=== PATIENT | male | born 1975 | race Caucasian/White ===

== ENCOUNTER 2018-07-13 15:27 | Outpatient (CLI) | payer OTHER, SELFPAY ==
[2018-07-13 17:36] LABS: ALT 46 U/L (12-78); AST 27 U/L (15-37); Albumin 3.9 g/dL (3.4-5.0); Alkaline Phosphatase 85 U/L (46-116); Anion Gap 12.1 mmol/L (3-11); BUN 17 mg/dL (7-18); Bilirubin, Total 0.7 mg/dL (0.2-1.0); CO2 24.9 mmol/L (21.0-32.0); CREATININE 1.03 mg/dL (0.70-1.30); Calcium 8.8 mg/dL (8.5-10.1); Chloride 103 mmol/L (98-107); Cholesterol 257 mg/dL (50-200); Glucose 104 mg/dL (70-100); HDL Cholesterol 62 mg/dL (40-60); LDL CHOLESTEROL 169 mg/dL (<100); Potassium 4.5 mmol/L (3.5-5.1); Sodium 140 mmol/L (136-145); Total Protein 7.8 g/dL (6.4-8.2); Triglyceride 182 mg/dL (30-150)
== END 2018-07-13 15:47 ==
PROVIDERS: PCP Physician Assistant Medical; Visit Provider Physician Assistant Medical
DX: Z00.00 Encounter for general adult medical examination without abnormal findings (principal); Z13.228 Encounter for screening for other metabolic disorders; Z13.220 Encounter for screening for lipoid disorders
CPT/HCPCS: 36415; 80053; 80061; 83721

== ENCOUNTER 2020-07-27 14:16 | Outpatient (REF) | payer OTHER, SELFPAY ==
[2020-07-30 10:59] LABS: Patient Race White; SARS-CoV-2 RNA Undetected (Undetected); SARS-CoV-2 Specimen Source Nasal
== END 2020-07-27 14:36 ==
LOC: LBO 14:16
PROVIDERS: PCP Physician Assistant Medical; Visit Provider Nurse Practitioner Family
DX: Z11.59 Encounter for screening for other viral diseases (principal)
CPT/HCPCS: U0003

== ENCOUNTER 2021-07-17 01:48 | Outpatient (CLI) | payer OTHER, SELFPAY ==
--- NOTE | 2021-07-17 | DI.RAD_ITS ---
Exam(s) XR LUMBAR SPINE COMPLETE EXAM: XR LUMBAR SPINE COMPLETE CLINICAL HISTORY: LOW BACK PAIN, M54.5. TECHNIQUE: 2D digital imaging was performed. COMPARISON: No exams were available for comparison FINDINGS: Five views reveal no evidence of fracture or listhesis nor pars interarticularis defects. There is m ild disc space narrowing at L3-4 level and anterior osseous lipping at this level. Facet joints appe ar unremarkable. Sacroiliac joints appear unremarkable. No scoliosis. No ominous osseous lesions. IMPRESSION: Mild disc space narrowing at L3-4 level. DATA REPOSITORY: RADIATION DOSE DELIVERED:
--- NOTE | 2021-07-17 | DI.RAD_ITS ---
Exam(s) XR FOOT LT COMPLETE EXAM: XR FOOT LT COMPLETE CLINICAL HISTORY: LT FOOT PAIN, M79.672. TECHNIQUE: 2D digital imaging was performed. COMPARISON: No exams were available for comparison FINDINGS: There is hardware in the ankle comprised of lateral fixation plate in the fibula and the syndesmotic screw. Bones of the foot are osteopenia. Exaggerated plantar arch. There are advanced degenerative midfoot changes. There is fusion across the calcaneocuboid joint. Mild degenerative changes in the talonav icular joint calcification in the plantar fascia is noted. IMPRESSION: DATA REPOSITORY: RADIATION DOSE DELIVERED:
== END 2021-07-17 02:08 ==
PROVIDERS: PCP Physician Assistant Medical; Visit Provider Physician Assistant Medical
DX: M79.672 Pain in left foot (principal); M54.5 Low back pain; M19.072 Primary osteoarthritis, left ankle and foot; M85.872 Other specified disorders of bone density and structure, left ankle and foot; M48.061 Spinal stenosis, lumbar region without neurogenic claudication
CPT/HCPCS: 72110; 73630

== ENCOUNTER 2021-07-17 03:45 | Outpatient (CLI) | payer OTHER, SELFPAY ==
[2021-07-17 14:27] LABS: ALT 197 U/L (16-63); AST 138 U/L (15-37); Alkaline Phosphatase 81 U/L (46-116); Anion Gap 9.5 mmol/L (3-11); BUN 10 mg/dL (7-18); Bilirubin, Total 1.6 mg/dL (0.2-1.0); CO2 27.5 mmol/L (21.0-32.0); Calcium 9.1 mg/dL (8.5-10.1); Calculated LDL 163 mg/dL (<100); Chloride 102 mmol/L (98-107); Cholesterol 276 mg/dL (<200); Glucose 107 mg/dL (74-106); HDL Cholesterol 96 mg/dL (40-60); Potassium 4.3 mmol/L (3.5-5.1); Sodium 139 mmol/L (136-145); Total Protein 7.7 g/dL (6.4-8.2); Triglyceride 86 mg/dL (<150)
[2021-07-19 10:49] LABS: Hepatitis A Antibody IgM Negative (Negative); Hepatitis B Core Antibody Negative (Negative); Hepatitis B surface Ag Negative (Negative); Hepatitis C Ab w Rflx HCV PCR Negative (Negative)
== END 2021-07-17 03:46 | disposition home or self-care (01) ==
LOC: LBO 03:47
PROVIDERS: PCP Physician Assistant Medical; Visit Provider Physician Assistant Medical
DX: R79.89 Other specified abnormal findings of blood chemistry (principal); Z00.00 Encounter for general adult medical examination without abnormal findings; Z13.220 Encounter for screening for lipoid disorders
CPT/HCPCS: 36415; 80053; 80061; 86704; 86709; 86803; 87340

== ENCOUNTER 2021-09-25 13:17 | Emergency (ER) | payer OTHER, SELFPAY ==
[2021-09-25] VITALS (21 sets, daily range): BP systolic 114–133; BP diastolic 80–108; PULSE 91–98; RESP 14–17; TEMP 36.4–36.7; O2SAT 92–97
--- OUTSIDE RECORDS SUMMARY | 2021-09-25 13:22 | XMS_ITS ---
:1975 Author Care Team Providers Name Role Phone MANDI VERA Primary Care Provider [phone] Allergies Code Code System Name Reaction Severity Status Onset 711072 RxNorm House Dust ? ? Active ? 141126 RxNorm Mold ? ? Active ? Medications Name Status Start Date Stop Date ? ? albuterol sulfate HFA 90 mcg/actuation Active ? Not available aerosol inhaler eszopiclone 3 mg tablet Active ? Not avai lable flurazepam 30 mg capsule Active ? Not yamila ilable temazepam 15 mg capsule Completed ? 10/17/20 20 zolpidem ER 12.5 mg tablet,extended Completed ? 10/17/2020 release,multiphase Problems Name Status Onset Date Source ? Hyperlipidemia Active 08/14/2020 ? Anxiety Active 08/14/2020 ? Tobacco User Active 08/14/2020 ? Insomnia Active 08/14/2020 ? Asthma Active 08/14/2020 ? Polyp Active 08/14/2020 ? Allergy to Food Active 08/14/2020 ? Snoring Active 10/15/2020 ? Procedures Date Name Performed by ? 10/17/2020 Polysomnogram Information not avai lable Results Lab Results None recorded. Past Encounters 10/17/2020 Snoring; Insomnia Shi Patel [employer] AIDE: [address] [place] [phone], Ph. Social History Tobacco Smoking Status Never Smoker Vaccine List None recorded. Plan of Care Reminders Provider Appointments None ? ? recorded. Lab None ? ? recorded. Referral None ? ? recorded. Procedures None ? ? recorded. Surgeries None ? ? recorded. Imaging None ? ? recorded. Vitals Height Weight BMI Blood Pressure 170.18 cm 108.86 kg 37.6 kg/m2 120/80 mm[Hg]
--- NOTE | 2021-09-25 13:45 | RT.EKG_ITS ---
APPROVED REPORT Exam: Resting ECG Reason for Exam: paresthesias Patient Location: E HR:90 bpm ECG Measurements Heart Rate 90 AXIS MN 182 P 45 QRSd 82 QRS 5 QT 373 T 39 QTc 456 Conclusion Sinus rhythm...normal P axis, V-rate 60- 99
--- NOTE | 2021-09-25 14:38 | ED.GENADUL_ITS ---
Discharge Plan Disposition Patient Disposition: HOME Condition: Stable Discharge Details Clinical Impression: Paresthesia Primary Care Provider: Marino Welch ED Provider: Autumn Montano Home Meds and New Rx's Prescriptions: Continued albuterol sulfate [ProAir HFA] 200 PUFF HFA aerosol inhaler 2 puff Inhalation PRN PRNRF: 0 eszopiclone [Lunesta] 3 MG tablet 3 mg PO PRN PRNRF: 0 Discharge Instructions Additional Instructions: Decrease your alcohol consumption by 1 drink daily, do not stop drinking alcohol abruptly as this can make you very ill Start taking a daily multivitamin Follow-up with your primary care physician in 2 to 3 days for reassessment You may need outpatient EMG studies, this checks nerve conduction to see why you are having your symptoms if you are not having symptomatic improvement You still have some tests are pending, we will call you with the tests are abnormal, they likely will not return for several days Should you have new or worsening complaints including headache, chest pain, shortness of breath, I recommend reassessment in the emergency room Referrals: Marino Welch PA [Primary Care Provider] - Discharge Data Discharge Date/Time-TO BE ENTERED AT DEPARTURE: 09/25/21 15:52 Medical Decision Making Patient appears well, he is ambulatory steady gait with essentially nonfocal neurological exam, diagnostic labs aside from elevated LFTs not show acute abnormality, suspect his symptoms are related to alcohol consumption, will tend to B12 will take multivitamin We'll decrease his alcohol consumption by 1 drink a day and Tylenol he is able to discontinue We'll follow up closely with his primary care physician, 1 to 2 days reflux recommended We talked about Neurontin patient the risk outweighs the benefit associated with this medication Outpatient EMG testing should he have persistent symptoms Lyme titer pending as well Will need LFTs recheck by primary care physician, discussed with return precautions discussed, discharged home in stable condition with stable Medical Records Medical records reviewed: Yes I reviewed the patient's medical records. Lab Data Lab results reviewed: Yes I reviewed the patient's lab results. HPI General Mode of arrival: ambulatory . Date/Time Provider Initiated Documentation: 09/25/21 13:20 . Limitations to Documentation: no limitations . Information obtained by: patient . HPI Narrative: This 46-year-old male presents with report of paresthesias to bilateral upper and lower extremities. States has had symptoms for approximately 6 weeks. He has not been evaluated by his PCP for these findings. He denies any chest pain or shortness of breath. He denies any dizziness or Related Data Home Medications Medication Instructions Recorded Confirmed albuterol sulfate [ProAir HFA] 2 puff INHALATION PRN PRN 06/13/13 09/25/21 eszopiclone [Lunesta] 3 mg PO PRN PRN 06/13/13 09/25/21 Allergies Allergy/AdvReac Type Severity Reaction Status Date / Time DUST AND MOLD Allergy WHEEZY Uncoded 09/25/21 13:27 General Stated Complaint: GenMedical WOOD: 3 Review of Systems All systems reviewed & are unremarkable except as noted in HPI and below PFSH Social History Smoking/Tobacco Use Status: Never Smoking risk assessment performed?: Yes Alcohol Intake: current Alcohol Intake frequency: 3 or more drinks per day Alcohol type: beer, wine and hard liquor Drug use: Never Substance use type: does not use Do you feel safe at home: Yes Do you feel safe in your relationship?: Yes Exam Const General: cooperative and no acute distress Eyes Sclera: sclerae normal Neck Other: No midline tenderness Resp Effort & Inspection: normal respiratory effort Auscultation: clear to auscultation bilaterally Cardio Rate: regular rate Rhythm: regular rhythm Other: distal pulses intact GI Other: no abdominal bruit or pulsatile mass Back/Spine/Pelvis Other: no midline tenderness Skin General skin exam: no rashes or lesions noted Neuro General: patient alert and patient oriented x3 Cranial Nerves: CN's II-XI intact bilaterally Cognition: normal cognition Speech: speech normal Gait: normal gait Extrem Other: Distal pulses intact, sensation intact distally patient Course Vital Signs Vital signs: Vital Signs Temperature 36.7 C 09/25/21 13:24 Pulse 92 H 09/25/21 13:24 Respiratory Rate 14 09/25/21 13:24 Pulse Oximetry 97 09/25/21 13:24 Temperature 36.7 C 09/25/21 13:24 Temperature Source Skin 09/25/21 13:24 Pulse 92 H 09/25/21 13:24 Respiratory Rate 14 09/25/21 13:24 Respiratory Effort Non-Labored 09/25/21 13:29 Respiratory Depth Normal 09/25/21 13:29 Respiratory Pattern Normal 09/25/21 13:29 Blood Pressure Position Supine 09/25/21 13:24 Pulse Oximetry 97 09/25/21 13:24 Oxygen Delivery Method Room Air 09/25/21 13:24 Oxygen Flow Rate 0 09/25/21 13:24 Pain Level 5 09/25/21 13:24 PAWSS Have you Been Recently Intoxicated or Drunk Within the Last 30 days?: No Have you Ever Experienced Previous Episodes of Alcohol Withdrawal?: No Have you ever Experienced Withdrawal Seizures?: No Have you ever Experienced Delirium Tremens(DT)s?: No Have you ever undergone Alcohol Rehabilitation Treatment (i.e, inpt ot outpatient treatment programs)?: No Have you ever Experienced Blackouts?: No Have you ever Combined Alcohol with other Downers within the last 90 days?: No Have you ever Combined Alcohol with any other Substance of Abuse during the last 90 days?: No Positive Blood Alcohol level on Presentation? [PCS.BAL]: No Evidence of Increased Autonomic Activity (i.e. HR>120, tremor, sweating, agitation, nausea)?: No Result: 0
[2021-09-25 14:41] LABS: Abs Immature Grans 0.01 10^3/uL (0.0-0.06); Absolute Basophil Count 0.04 10^3/uL (0.0-0.2); Absolute Eosinophil Count 0.03 10^3/uL (0.0-0.7); Absolute Lymphocyte Count 1.48 10^3/uL (1.2-3.4); Absolute Monocyte Count 0.55 10^3/uL (0.1-0.8); Absolute Neutrophil Count 2.37 10^3/uL (1.2-6.7); Basophils % 0.9; Eosinophils % 0.7; HCT 47.1 % (40.0-50.0); HGB 16.3 g/dL (13.5-17.5); Immature Grans % 0.2; MCH 32.5 pg (27.0-33.0); MCHC 34.6 % (32.0-36.0); MCV 93.8 fL (80-95); MPV 9.1 fL (8.0-11.0); Monocytes % 12.3; Neutrophils % 52.9; Nucleated RBC 0 %; Platelet Count 209 10^3/uL (130-400); RBC 5.02 10^6/uL (4.36-5.78); RDW 12.8 % (11.8-14.1); WBC 4.48 10^3/uL (4.4-10.8)
[2021-09-25 15:15] LABS: ALT 182 U/L (16-63); AST 228 U/L (15-37); Albumin 3.8 g/dL (3.4-5.0); Alkaline Phosphatase 83 U/L (46-116); Anion Gap 10.9 mmol/L (3-11); BUN 6 mg/dL (7-18); Bilirubin, Total 0.7 mg/dL (0.2-1.0); CO2 26.1 mmol/L (21.0-32.0); CREATININE 0.8 mg/dL (0.70-1.30); Calcium 8.6 mg/dL (8.5-10.1); Chloride 102 mmol/L (98-107); Creatine Kinase 111 U/L (39-308); Glucose 115 mg/dL (74-106); Magnesium 2.2 mg/dL (1.8-2.4); Potassium 4.1 mmol/L (3.5-5.1); Sodium 139 mmol/L (136-145); TSH (W/Ref FT4) 1.85 uIU/mL (0.36-3.74); Total Protein 7.9 g/dL (6.4-8.2)
[2021-09-25 16:25] LABS: Vitamin B12 756 pg/mL (193-986)
[2021-09-26 10:48] LABS: Lyme Ab w Rflx to Lyme Confirm Negative (Negative)
[2021-09-27 17:23] LABS: Anaplasma phagocytophilum Negative (Negative); B. miyamotoi PCR Negative (Negative); Babesia divergens/MO-1 Negative (Negative); Babesia duncani Negative (Negative); Babesia microti Negative (Negative); Ehrlichia chaffeensis Negative (Negative); Ehrlichia ewingii/canis Negative (Negative); Ehrlichia muris eauclairensis Negative (Negative)
== END 2021-09-25 15:52 | disposition home or self-care (01) ==
PROVIDERS: Emergency Provider Physician Assistant; PCP Physician Assistant Medical
DX: R20.0 Anesthesia of skin (principal)
CPT/HCPCS: 80053; 82550; 87798; 93005; 99283; 82607; 83735; 84443; 85025; 86618; 93010

== ENCOUNTER 2022-03-28 12:00 | Emergency (ER) | payer OTHER, SELFPAY ==
[2022-03-28 12:23] VITALS: BP 128/75; PULSE 101; RESP 16; TEMP 36.6; O2SAT 98
--- NOTE | 2022-03-28 13:44 | ED.GENADUL_ITS ---
Discharge Plan Disposition Patient Disposition: HOME Condition: Stable Discharge Details Chief Complaint: RespSymp Clinical Impression: Cough Primary Care Provider: Marino Welch ED Provider: Chad Collins Home Meds and New Rx's Prescriptions: No Action albuterol sulfate [ProAir HFA] 200 PUFF HFA aerosol inhaler 2 puff Inhalation PRN PRN Label Comments: a week or so ago eszopiclone [Lunesta] 3 MG tablet 3 mg PO PRN PRN Discharge Instructions Instructions: Acute Cough (ED) Additional Instructions: Please follow-up with your primary care physician. Please return to the emergency part if you have worsening symptoms such as worsening cough fevers chills shortness of breath or other abnormal symptoms. Medical Decision Making 46-year-old male recent COVID-19 presents with persistent nonproductive cough over the past several days, nontoxic well-appearing no respiratory stress lungs clear bilaterally. Consider subsequent pneumonia post viral infection versus less likely persistent viral infection versus residual inflammatory state from viral infection versus unlikely pneumothorax or pleural effusion. Screening x- ray, trial of steroids. Patient will likely be discharged home with home care instructions and return precautions pending x-ray results. 14: 59 patient was comfortably no acute distress x-ray clear. No respiratory distress given home care instructions and return precautions. HPI General Date/Time Provider Initiated Documentation: 03/28/22 13:32 . HPI Narrative: 46-year-old male recent COVID-19 presents with persistent nonproductive cough over the past several days, denies fever chills nausea vomiting or shortness of breath. Related Data Home Medications Medication Instructions Recorded Confirmed albuterol sulfate 90 mcg/actuation 2 puff inhalation PRN PRN 06/13/13 03/28/22 aerosol inhaler (ProAir HFA) eszopiclone 3 mg tablet (Lunesta) 3 mg PO PRN PRN 06/13/13 03/28/22 Allergies Allergy/AdvReac Type Severity Reaction Status Date / Time DUST AND MOLD Allergy WHEEZY Uncoded 09/25/21 13:27 General Stated Complaint: RespSymp WOOD: 3 Review of Systems Narrative: Review of Systems Constitutional: negative Eyes: negative ENT: negative Cardiovascular: negative Respiratory: Cough Gastrointestinal: negative : negative Musculoskeletal: negative Skin: negative Neurologic: negative Psych: negative PFSH All Active Problems (Updated 03/28/22 @ 15:01 by Chad Collins MD) Paresthesia (Acute) Cough (Acute) Encounter for screening for other viral diseases (Acute) Social History Smoking/Tobacco Use Status: Never Smoking risk assessment performed?: Yes Alcohol Intake: current Alcohol Intake frequency: 3 or more drinks per day Alcohol type: beer, wine and hard liquor Drug use: Never Substance use type: does not use Do you feel safe at home: Yes Do you feel safe in your relationship?: Yes Exam Narrative Exam Narrative: Physical Examination General: alert, awake, cooperative, resting comfortably, no acute distress HEENT: normocephalic, atraumatic; PERRL, EOM intact, conjunctiva normal; no nasal discharge; moist mucous membranes, oral and pharyngeal mucosa normal, tolerating secretions Neck: supple, trachea midline; full ROM Chest: normal to inspection Respiratory: normal respiratory effort, speaking in full sentences, clear to auscultation, no wheezing, rales or rhonchi Cardiac: regular rate, regular rhythm, S1S2 intact, no murmurs rubs or gallops GI: abdomen soft, non-tender, non-distended; no palpable mass or hepatosplenomegaly Skin: no lesions, rashes or trauma appreciated Neuro: AAOx3, normal speech, moving all extremities Psych: Appropriate mood and affect Course Vital Signs Vital signs: Vital Signs Temperature 36.6 C 03/28/22 12:23 Pulse 101 H 03/28/22 12:23 Respiratory Rate 16 03/28/22 12:23 Blood Pressure 128/75 03/28/22 12:23 Pulse Oximetry 98 03/28/22 12:23 Temperature 36.6 C 03/28/22 12:23 Temperature Source Tympanic 03/28/22 12:23 Pulse 101 H 03/28/22 12:23 Respiratory Rate 16 03/28/22 12:23 Respiratory Effort 03/28/22 12:26 Blood Pressure 128/75 03/28/22 12:23 Pulse Oximetry 98 03/28/22 12:23 Oxygen Delivery Method Room Air 03/28/22 12:23 Oxygen Flow Rate 0 03/28/22 12:23 Pain Level 0 03/28/22 12:23 PAWSS Have you Been Recently Intoxicated or Drunk Within the Last 30 days?: No Have you Ever Experienced Previous Episodes of Alcohol Withdrawal?: No Have you ever Experienced Withdrawal Seizures?: No Have you ever Experienced Delirium Tremens(DT)s?: No Have you ever undergone Alcohol Rehabilitation Treatment (i.e, inpt ot outpatient treatment programs)?: No Have you ever Experienced Blackouts?: No Have you ever Combined Alcohol with other Downers within the last 90 days?: No Have you ever Combined Alcohol with any other Substance of Abuse during the last 90 days?: No Result: 0
--- NOTE | 2022-03-28 14:08 | DI.RAD_ITS ---
Exam(s) XR CHEST 2V PA LATERAL EXAM: XR CHEST 2V PA LATERAL CLINICAL HISTORY: recent covid, persistant cough TECHNIQUE: 2D digital imaging was performed of the chest. Three images were obtained. PA and later al views were obtained. COMPARISON: CR CHEST 2 VIEWS PA,LAT from 10/29/2012 FINDINGS: MEDIASTINUM: Normal. HEART: Normal. PULMONARY VASCULATURE: Normal. LUNGS: Clear. PLEURAL SPACE: No pleural effusion or pneumothorax. BONE:Within normal limits for the patient's age. OTHER FINDINGS:Normal. IMPRESSION: No acute pulmonary findings. DATA REPOSITORY: RADIATION DOSE DELIVERED:
[2022-03-28] MEDS: Dexamethasone 10 MG/ML VIAL IVP (14:18)
== END 2022-03-28 15:06 | disposition home or self-care (01) ==
PROVIDERS: Emergency Provider Emergency Medicine; PCP Physician Assistant Medical
DX: R05.1 Acute cough (principal); Z86.16 Personal history of COVID-19
CPT/HCPCS: 99283; 71046; J1100

== ENCOUNTER 2022-06-20 18:51 | Outpatient (REF) | payer OTHER, SELFPAY ==
[2022-06-20 20:02] LABS: Abs Immature Grans 0.04 10^3/uL (0.0-0.06); Absolute Eosinophil Count 0.13 10^3/uL (0.0-0.7); Absolute Lymphocyte Count 1.88 10^3/uL (1.2-3.4); Absolute Monocyte Count 1.01 10^3/uL (0.1-0.8); Absolute Neutrophil Count 5.39 10^3/uL (1.2-6.7); Basophils % 1.2; Eosinophils % 1.5; HCT 47.3 % (40.0-50.0); HGB 16.1 g/dL (13.5-17.5); Immature Grans % 0.5; MCH 32.1 pg (27.0-33.0); MCV 94 fL (80-95); MPV 10.2 fL (8.0-11.0); Monocytes % 11.8; Platelet Count 231 10^3/uL (130-400); RBC 5.02 10^6/uL (4.36-5.78); RDW 12.3 % (11.8-14.1); RDW-SD 42.9 fL; WBC 8.55 10^3/uL (4.4-10.8)
[2022-06-20 20:14] LABS: Hemoglobin A1C 5.1 % (<5.7)
[2022-06-20 20:18] LABS: ALT 163 U/L (16-63); AST 149 U/L (15-37); Albumin 3.9 g/dL (3.4-5.0); Alkaline Phosphatase 74 U/L (46-116); Anion Gap 12.8 mmol/L (3-11); BUN 10 mg/dL (7-18); Bilirubin, Total 0.7 mg/dL (0.2-1.0); CO2 25.2 mmol/L (21.0-32.0); CREATININE 0.9 mg/dL (0.70-1.30); Calculated LDL 174 mg/dL (<100); Chloride 103 mmol/L (98-107); Cholesterol 290 mg/dL (<200); Estimated GFR 106.01 (mL/min/1.73m2); Glucose 87 mg/dL (74-106); HDL Cholesterol 93 mg/dL (40-60); Potassium 4.6 mmol/L (3.5-5.1); Sodium 141 mmol/L (136-145); Total Protein 8.3 g/dL (6.4-8.2); Triglyceride 118 mg/dL (<150)
== END 2022-06-20 18:52 | disposition home or self-care (01) ==
LOC: NCHCN 18:51
PROVIDERS: PCP Physician Assistant Medical; Visit Provider Physician Assistant Medical
DX: R79.89 Other specified abnormal findings of blood chemistry (principal); R73.9 Hyperglycemia, unspecified
CPT/HCPCS: 80053; 80061; 83036; 85025

== ENCOUNTER 2022-11-14 14:42 | Outpatient (REF) | payer OTHER, SELFPAY ==
[2022-11-14 19:31] LABS: HGB 16.6 g/dL (13.5-17.5); MCH 32.2 pg (27.0-33.0); MCHC 35.3 % (32.0-36.0); MCV 91 fL (80-95); MPV 10.7 fL (8.0-11.0); Platelet Count 263 10^3/uL (130-400); RBC 5.15 10^6/uL (4.36-5.78); RDW 12.4 % (11.8-14.1); RDW-SD 41.9 fL; WBC 8.47 10^3/uL (4.4-10.8)
[2022-11-14 19:42] LABS: ALT 109 U/L (16-63); AST 49 U/L (15-37); Albumin 4.1 g/dL (3.4-5.0); Alkaline Phosphatase 77 U/L (46-116); Bilirubin, Direct 0.1 mg/dL (0.0-0.2); Bilirubin, Total 0.7 mg/dL (0.2-1.0)
== END 2022-11-14 14:43 | disposition home or self-care (01) ==
LOC: NCHCN 14:42
PROVIDERS: PCP Physician Assistant Medical; Visit Provider Physician Assistant Medical
DX: R79.89 Other specified abnormal findings of blood chemistry (principal)
CPT/HCPCS: 80076; 85027

== ENCOUNTER 2023-05-08 15:37 | Outpatient (REF) | payer OTHER, SELFPAY ==
[2023-05-08 15:19] LABS: HCT 44.5 % (40.0-50.0); HGB 15.7 g/dL (13.5-17.5); MCH 32.7 pg (27.0-33.0); MCHC 35.3 % (32.0-36.0); MCV 93 fL (80-95); MPV 9.9 fL (8.0-11.0); Platelet Count 211 10^3/uL (130-400); RDW 12.3 % (11.8-14.1); RDW-SD 42.4 fL; WBC 6.68 10^3/uL (4.4-10.8)
[2023-05-08 15:49] LABS: ALT 222 U/L (16-63); AST 217 U/L (15-37); Albumin 3.8 g/dL (3.4-5.0); Alkaline Phosphatase 70 U/L (46-116); Anion Gap 10.7 mmol/L (3-11); BUN 9 mg/dL (7-18); Bilirubin, Total 0.5 mg/dL (0.2-1.0); CO2 25.3 mmol/L (21.0-32.0); CREATININE 0.9 mg/dL (0.70-1.30); Calcium 9.3 mg/dL (8.5-10.1); Calculated LDL 186 mg/dL (<100); Chloride 104 mmol/L (98-107); Cholesterol 289 mg/dL (<200); Estimated GFR 105.35 (mL/min/1.73m2); Glucose 110 mg/dL (74-106); HDL Cholesterol 87 mg/dL (40-60); Potassium 4.4 mmol/L (3.5-5.1); Sodium 140 mmol/L (136-145); Total Protein 7.7 g/dL (6.4-8.2); Triglyceride 83 mg/dL (<150)
== END 2023-05-08 15:38 | disposition home or self-care (01) ==
LOC: NCHCN 15:37
PROVIDERS: PCP Physician Assistant Medical; Visit Provider Physician Assistant Medical
DX: E78.5 Hyperlipidemia, unspecified (principal); R79.89 Other specified abnormal findings of blood chemistry
CPT/HCPCS: 80053; 80061; 85027

== ENCOUNTER 2023-10-25 16:54 | Emergency (ER) | payer OTHER, SELFPAY ==
[2023-10-25] VITALS (8 sets, daily range): BP systolic 136–150; BP diastolic 72–106; PULSE 113–133; RESP 18–22; TEMP 37; O2SAT 92–100
[2023-10-25 17:17] LABS: Abs Immature Grans 0.09 10^3/uL (0.0-0.06); HCT 44.8 % (40.0-50.0); HGB 15.7 g/dL (13.5-17.5); MCH 32.3 pg (27.0-33.0); MCV 92 fL (80-95); MPV 8.8 fL (8.0-11.0); Platelet Count 237 10^3/uL (130-400); RBC 4.86 10^6/uL (4.36-5.78); RDW 12.1 % (11.8-14.1); RDW-SD 40.9 fL; WBC 14.65 10^3/uL (4.4-10.8)
[2023-10-25 17:21] LABS: ESR 14 mm/hr (0-15)
--- NOTE | 2023-10-25 17:30 | W.ED.GENAD ---
HPI General Stated Complaint: Headache WOOD: 3 Date/Time Provider Initiated Documentation: 10/25/23 16:59. HPI Narrative: 48 year-old male presents to ED today by POV/ambulating with a chief complaint of mild headaches, new onset, exquisite pain with light-touch to L temporal area, even soft winter hats causing pain, and dizziness with onset 4 days ago. Quality described as exquisite tenderness with light touch, and some skin pigmentation very subtly in the area of pain, no radiation to vision loss, blurred vision, diplopia, severe eye pain, jaw claudication. Severity is described as 7/10. Palliating factors include nothing specific attempted. Provoking factors include nothing specific. Events leading up to the incident/Associated Symptoms: Patient denies history of headaches, denies history of vertigo. Patient not anticoagulated. Related Data Home Medications Medication Instructions Recorded Confirmed albuterol sulfate 90 mcg/actuation 2 puff inhalation PRN PRN 06/13/13 10/25/23 aerosol inhaler (ProAir HFA) eszopiclone 3 mg tablet (Lunesta) 3 mg PO PRN PRN 06/13/13 10/25/23 Allergies Allergy/AdvReac Type Severity Reaction Status Date / Time DUST AND MOLD Allergy WHEEZY Uncoded 10/25/23 17:00 Review of Systems All systems reviewed & are unremarkable except as noted in HPI and below PFSH All Active Problems (Updated 10/25/23 @ 18:59 by SHABNAM Mccann) Scalp tenderness (Acute) Paresthesia (Acute) Encounter for screening for other viral diseases (Acute) Social History Smoking/Tobacco Use Status: Never Smoking risk assessment performed?: Yes Alcohol Intake: current Alcohol Intake frequency: 3 or more drinks per day Alcohol type: beer, wine and hard liquor Drug use: Never Substance use type: does not use Do you feel safe at home: Yes Do you feel safe in your relationship?: Yes PAWSS Have you Been Recently Intoxicated or Drunk Within the Last 30 days?: No Have you Ever Experienced Previous Episodes of Alcohol Withdrawal?: No Have you ever Experienced Withdrawal Seizures?: No Have you ever Experienced Delirium Tremens(DT)s?: No Have you ever undergone Alcohol Rehabilitation Treatment (i.e, inpt ot outpatient treatment programs)?: No Have you ever Experienced Blackouts?: No Have you ever Combined Alcohol with other Downers within the last 90 days?: No Have you ever Combined Alcohol with any other Substance of Abuse during the last 90 days?: No Positive Blood Alcohol level on Presentation? [PCS.BAL]: No Evidence of Increased Autonomic Activity (i.e. HR>120, tremor, sweating, agitation, nausea)?: No Result: 0 Exam Narrative Exam Narrative: GENERAL APPEARANCE: Well-nourished, non-toxic, awake and alert, atraumatic, no acute distress. SKIN: Warm, pink, dry, intact, without rashes/lesions/ulcerations. HEAD: Normocephalic, atraumatic, shaved head, tenderness with light touch in L temporal area radiating back behind ear, some purpuritic spots in L temporal area, no cuenca erythema or fluctuant swelling, no purulent drainage, not a typical presentation of folliculitis EYES: Pupils PERRLA, EOMs intact without nystagmus, vision grossly normal, visual flores intact, normal conjunctiva, no exudates on lids/lashes. ENT: Nares patent, no circumoral cyanosis, no facial swelling, Mack does not provoke vertigo NECK: Supple, trachea midline, painless cervical ROM. LUNGS/CHEST: Non-labored respirations, normal A/P diameter, symmetrical expansion, no chest wall deformity HEART (CV/PV): Regular rate and rhythm without murmur, no peripheral edema, no JVD. ABDOMEN: Soft, non-distended, no guarding. MSK: Normal ROM, no swelling/deformity to bilateral UEs or LEs, moving all extremities without weakness, no cyanosis, spine midline without tenderness, normal curvature. NEURO: Mental Status AAOx4 - alert to person, place, time, events No facial droop, no forehead involvement. Motor: No focal weakness - strength 5/5 in bilateral UEs and LEs, proximal and distal, symmetric. Sensory: sensation intact to light touch globally. Gait normal: patient ambulated without ataxia into ED room. PSYCH: euthymic, cooperative, pleasant, appropriate speech Course Vital Signs Vital signs: Vital Signs Temperature 37 C 10/25/23 16:56 Pulse 133 H 10/25/23 16:56 Respiratory Rate 18 10/25/23 16:56 Blood Pressure 150/106 H 10/25/23 16:56 Pulse Oximetry 100 10/25/23 16:56 Temperature 37 C 10/25/23 17:13 Temperature Source Temporal Artery Scan 10/25/23 17:13 Pulse 114 H 10/25/23 17:13 Pulse 117 H 10/25/23 17:20 Respiratory Rate 20 10/25/23 17:20 Respiratory Effort Normal, Non-Labored 10/25/23 17:00 Blood Pressure 136/72 10/25/23 17:13 Blood Pressure Mean 89 10/25/23 17:13 Blood Pressure Position Sitting 10/25/23 17:13 Pulse Oximetry 92 10/25/23 17:20 Oxygen Delivery Method Room Air 10/25/23 17:13 Oxygen Flow Rate 0 10/25/23 17:13 Lab/Test Results Lab/Test Results: Laboratory Tests Range/Units 10/25/23 17:10 ESR (0-15) mm/hr 14 Medical Decision Making This dictation utilizes [id number] dictation software and may contain unedited grammatical errors. 48 y/o M presents to ED today with a chief complaint of headaches, exquisite scalp tenderness, some purple spots on his scalp in the L temporal area, and sudden dizziness he states comes from his eyes when he stands up or moves quickly. Patient denies any similar history. Patients' medical history: negative, otherwise healthy. Family and social history: noncontributory. Pertinent exam findings / vital signs include no swelling, erythema, or purulent drainage to L temporal area, no vesicular lesions, no visual abnormality, nontoxic vitals. Differential / pathologies of concern include temporal arteritis, vasculitis, inner ear pathology, not mastoiditis, prodrome of shingles. Diagnostic studies of: -CBC, CMP, CRP/ESR. Added CTA Head & Neck, CPK, Urinalysis, ANCA Vasculitis Panel- will discharge and followup PCP with results per patients preference. -mild leukocytosis, 14- question infection? -CRP elevated -ESR upper normal 14 -UA benign -CK neg -CTA Head and Neck shows no acute pathology. Interventions of: -60mg prednisone single dose given, but Neuro-vascular consult recommends against steroids-would be very atypical case for GCA. they recommended imaging, performing CTA Head & Neck for dizziness/headache, they recommend Rheumatology consult. -Rheumatology, recommends adding CPK, ANCA Vasculitis Panel, Urinalysis- they can follow-up with him Oct 29 at [facility] [place] at 5C at 1300hr if he is still symptomatic, no emergent interventions needed. -trial of ABX for atypical folliculitis, patient requests dishcarge prior to CTA results, would return for emergent findings but would like to follow results with his PCP tomorrow. Reasonable with no focal neuro deficits, no signs of severe infection ED Course/Assessment/Plan: 48-year-old male presents with atypical presentation of exquisite temporal tenderness even with light touch or soft winter hat to the area, has some vague dizziness with standing without any Mack maneuver causing vertigo, no jaw claudication, states his dizziness he feels in his eyes, I discussed with [facility] [place] [place] vascular neuro, they do not feel this is giant cell arteritis, they were referred to rheumatology. Rheumatology suggest adding CK and ANCA vasculitis panel, CTA of the head and neck was performed, but the patient wanted discharge prior to results as he will follow-up with his primary care provider for any further studies. This was reasonable with a normal neurological exam, I did discuss with him the possibility of early prodrome of shingles as well and to return or follow-up with his primary care for any vesicular lesions appearing to the area. Findings not consistent with GCA. Disposition of Scalp Tenderness. Patient verbalized understanding of the plan and return to ED criteria and engaged in shared decision making. Medical Records Medical records reviewed: Yes I reviewed the patient's medical records. Imaging Data Radiologic Study: Imaging: CT Scan Radiologist's impression: Exam: CTA Head With Contrast, Arteriography Exam date and time: 10/25/2023 6:44 PM Age: 48 years old Clinical indication: Stroke-like symptoms; Other: Dizziness on standing, ttp light touch TECHNIQUE: Imaging protocol: Computed tomographic angiography of the head with contrast. Exam focused on the arteries. 3D rendering (Not supervised by radiologist): MIP and/or 3D reconstructed images were created by the technologist. Radiation optimization: All CT scans at this facility use at least one of these dose optimization techniques: automated exposure control; mA and/or kV adjustment per patient size (includes targeted exams where dose is matched to clinical indication); or iterative reconstruction. Contrast material: OMNIPAQUE 350; Contrast volume: 100 ml; Contrast route: INTRAVENOUS (IV); COMPARISON: No relevant prior studies available. FINDINGS: ANTERIOR CIRCULATION: Right internal carotid artery: Intracranial segment is patent with no significant stenosis. No aneurysm. Right middle cerebral artery: No occlusion or significant stenosis. No aneurysm. Right anterior cerebral artery: No occlusion or significant stenosis. No aneurysm. Left internal carotid artery: Intracranial segment is patent with no significant stenosis. No aneurysm. Left middle cerebral artery: No occlusion or significant stenosis. No aneurysm. Left anterior cerebral artery: No occlusion or significant stenosis. No aneurysm. POSTERIOR CIRCULATION: Right vertebral artery: No occlusion or significant stenosis. No aneurysm. Left vertebral artery: No occlusion or significant stenosis. No aneurysm. Basilar artery: No occlusion or significant stenosis. No aneurysm. Right posterior cerebral artery: No occlusion or significant stenosis. No aneurysm. Left posterior cerebral artery: No occlusion or significant stenosis. No aneurysm. Brain: No definite mass, mass effect, or midline shift. Cerebral ventricles: No ventriculomegaly. Bones/joints: Unremarkable. No acute fracture. Soft tissues: Unremarkable. IMPRESSION: No large vessel stenosis or occlusion. PROCEDURE INFORMATION: Exam: CTA Neck With Contrast Exam date and time: 10/25/2023 6:44 PM Age: 48 years old Clinical indication: Stroke-like symptoms; Other: Dizziness on standing, ttp light touch TECHNIQUE: Imaging protocol: Computed tomographic angiography of the neck with contrast. Exam focused on the cervical segments of the vasculature. 3D rendering (Not supervised by radiologist): MIP and/or 3D reconstructed images were created by the technologist. Radiation optimization: All CT scans at this facility use at least one of these dose optimization techniques: automated exposure control; mA and/or kV adjustment per patient size (includes targeted exams where dose is matched to clinical indication); or iterative reconstruction. Contrast material: OMNIPAQUE 350; Contrast volume: 100 ml; Contrast route: INTRAVENOUS (IV); COMPARISON: CR XR CHEST 2V PA LATERAL 03/28/2022 2:01 PM FINDINGS: Right common carotid artery: No stenosis. No dissection or occlusion. Right internal carotid artery: No stenosis of the extracranial segment. No dissection or occlusion. Right external carotid artery: No occlusion or stenosis of the origin. Left common carotid artery: No stenosis. No dissection or occlusion. Left internal carotid artery: No stenosis of the extracranial segment. No dissection or occlusion. Left external carotid artery: No occlusion or stenosis of the origin. Right vertebral artery: No stenosis. No dissection or occlusion. Left vertebral artery: No stenosis. No dissection or occlusion. Soft tissues: No significant soft tissue swelling. Bones/joints: No acute fracture. IMPRESSION: No stenosis or occlusion. REFERENCES: NASCET CRITERIA. The degree of stenosis in the cervical segment of the internal carotid artery is based on NASCET criteria. Normal is no stenosis. Mild is less than 50% stenosis. Moderate is 50-69% stenosis. Severe is 70% to 99% stenosis. Total occlusion is no detectable patent lumen. Dictated and Authenticated by: Rodney Willson MD. Ordering:FRANK Restrepo MD Lab Data Lab results reviewed: Yes I reviewed the patient's lab results. Labs: Laboratory Tests Range/Units 10/25/23 10/25/23 17:00 17:10 WBC (4.4-10.8) 10^3/uL 14.65 H RBC (4.36-5.78) 10^6/uL 4.86 Hgb (13.5-17.5) g/dL 15.7 Hct (40.0-50.0) % 44.8 MCV (80-95) fL 92 MCH (27.0-33.0) pg 32.3 MCHC (32.0-36.0) % 35.0 RDW (11.8-14.1) % 12.1 Plt Count (130-400) 10^3/uL 237 MPV (8.0-11.0) fL 8.8 Immature Gran % 0.0 Neutrophils % 66.0 Band Neutrophils % 1 Lymphocytes % 16.0 Atypical Lymphs % 5 Monocytes % 10.0 Eosinophils % 1.0 Basophils % 1.0 Nucleated RBC % (0.0-0.3) % 0.0 Absolute Neutrophils (1.2-6.7) 10^3/uL 9.82 H Absolute Lymphocytes (1.2-3.4) 10^3/uL 3.08 Absolute Monocytes (0.1-0.8) 10^3/uL 1.47 H Absolute Eosinophils (0.0-0.7) 10^3/uL 0.15 Absolute Basophils (0.0-0.2) 10^3/uL 0.15 RBC Morphology Normal ESR (0-15) mm/hr 14 Sodium (136-145) mmol/L 134 L Potassium (3.5-5.1) mmol/L 3.9 Chloride (98-107) mmol/L 98 Carbon Dioxide (21.0-32.0) mmol/L 26.5 Anion Gap (3-11) mmol/L 9.5 BUN (7-18) mg/dL 12 Creatinine (0.70-1.30) mg/dL 1.1 Est GFR (CKD-EPI 2020) (mL/min/1.73m2) 82.81 Glucose (74-106) mg/dL 99 Calcium (8.5-10.1) mg/dL 9.1 Total Bilirubin (0.2-1.0) mg/dL 0.8 AST (15-37) U/L 100 H ALT (16-63) U/L 112 H Alkaline Phosphatase (46-116) U/L 76 Creatine Kinase (39-308) U/L 73 C-Reactive Protein (0.0-0.3) mg/dL 4.15 H Total Protein (6.4-8.2) g/dL 8.2 Albumin (3.4-5.0) g/dL 3.7 Urine Color (Yellow) Yellow Urine Clarity (Clear) Clear Urine pH (5-8) 5.5 Ur Specific [place] (1.005-1.025) <= 1.005 Urine Protein (Negative) mg/dL Negative Urine Ketones (Negative) mg/dL Negative Urine Blood (Negative) Negative Urine Nitrite (Negative) Negative Urine Bilirubin (Negative) Negative Urine Urobilinogen (Up to 0.2) mg/dL 0.2 Ur Leukocyte Esterase (Negative) Negative Urine Glucose (Negative) mg/dL Negative Quality:SDOH Health Related Social Needs: No Data to Display Discharge Plan Disposition Patient Disposition: Home Discharge Details Clinical Impression: Scalp tenderness Primary Care Provider: Marino Welch ED Provider: Lauro Galvan Home Meds and New Rx's Prescriptions: No Action albuterol sulfate [ProAir HFA] 200 PUFF HFA aerosol inhaler 2 puff Inhalation PRN PRN Patient Comments: a week or so ago eszopiclone [Lunesta] 3 MG tablet 3 mg PO PRN PRN Discharge Instructions Instructions: Acute Headache (ED) Additional Instructions: You were seen in the emergency department for your scalp exquisite tenderness with dizziness felt in your eyes upon standing. The CTA of your head and neck is pending radiology read at time of your discharge per your preference, I have also spoken with the vascular neurologist who is most assured that you are unlikely to have temporal arteritis the condition we spoke of that needs biopsy. He did recommend that I speak with rheumatology and we did add on some laboratory studies that should result some tomorrow and some in about a week is 1 was a send out to check for something called an ANCA vasculitis as well as the lab CPK and that should result tomorrow to see if this is muscular in nature. [facility] rheumatology can follow-up with you on October 29 at 1 PM and 5C at [facility] if you are still symptomatic, your welcome to call them and cancel if your symptoms resolve. There is no overt signs of infection but this could be a folliculitis and if you develop more significant swelling or any drainage of pus from the wounds I would suspect that we need to start antibiotics, you should contact your primary care provider. Both providers recommended against starting steroids at this time. Please return to the emergency department for any emergent concerns, worsening headaches, vertigo, visual changes, fever, developing vesicular lesions. Referrals: [facility] [Outside] (Can see Rheumatology at 1pm on Oct 29 at [facility] [place] 5C) Marino Welch PA [Primary Care Provider] -
[2023-10-25 17:31] LABS: ALT 112 U/L (16-63); AST 100 U/L (15-37); Albumin 3.7 g/dL (3.4-5.0); Alkaline Phosphatase 76 U/L (46-116); Anion Gap 9.5 mmol/L (3-11); BUN 12 mg/dL (7-18); Bilirubin, Total 0.8 mg/dL (0.2-1.0); C-Reactive Protein 4.15 mg/dL (0.0-0.3); CO2 26.5 mmol/L (21.0-32.0); CREATININE 1.1 mg/dL (0.70-1.30); Calcium 9.1 mg/dL (8.5-10.1); Chloride 98 mmol/L (98-107); Estimated GFR 82.81 (mL/min/1.73m2); Glucose 99 mg/dL (74-106); Potassium 3.9 mmol/L (3.5-5.1); Sodium 134 mmol/L (136-145); Total Protein 8.2 g/dL (6.4-8.2)
[2023-10-25 17:33] LABS: Absolute Basophil Count 0.15 10^3/uL (0.0-0.2); Absolute Eosinophil Count 0.15 10^3/uL (0.0-0.7); Absolute Lymphocyte Count 3.08 10^3/uL (1.2-3.4); Absolute Monocyte Count 1.47 10^3/uL (0.1-0.8); Absolute Neutrophil Count 9.82 10^3/uL (1.2-6.7); Atypical Lymphocytes % 5; Bands % 1; Diff Comment Manual Differential; RBC Morphology Normal
[2023-10-25] MEDS: predniSONE 20 MG TAB 60 MG PO (18:06)
--- NOTE | 2023-10-25 18:30 | DI.CT_ITS ---
Exam(s) CT BRAIN NECK CTA EXAM: CT BRAIN NECK CTA CLINICAL HISTORY: TTP light touch, dizziness on standing. TECHNIQUE: Imaging Protocol: Axial CT angiography was performed with multi-slice acquisition and mu lti-planar and/or 3D reconstructions. CONTRAST MATERIAL: Intravenous: Omnipaque 350 contrast volume:100 mL COMPARISON: No exams were available for comparison FINDINGS: CT Head W/O and W: Ventricles and Extra axial spaces: Normal in size and morphology for the patient's age. Hemorrhage: None. Cerebral parenchyma: Normal. Midline shift: None. Brainstem/Cerebellum: Normal. Calvarium: Normal. Visualized Paranasal sinuses/Mastoids: Clear. Soft Tissues: Unremarkable. Enhancement: Unremarkable. CTA Neck W: Common Carotid: Right: No dissection, occlusion or significant stenosis. Left: No dissection, occlusion or significant stenosis. External Carotid: Right: No occlusion or significant stenosis. Left: No occlusion or significant stenosis. Internal Carotid: Right: No dissection, occlusion or significant stenosis. Minimal atherosclerosis seen at the origin of the right internal carotid artery. Left: No dissection, occlusion or significant stenosis. Vertebral Artery: Right: No dissection, occlusion or significant stenosis. Left: No dissection, occlusion or significant stenosis. Lung Apices: Normal. Bones: Within normal limits for the patient's age. Soft Tissues: Normal. Thyroid gland: Unremarkable. CTA Brain W: Internal Carotid Arteries: No evidence of acute aneurysm, occlusion or significant stenosis. Anterior Cerebral Arteries: Right: No aneurysm, occlusion or significant stenosis. Left: No aneurysm, occlusion or significant stenosis. Middle Cerebral Arteries: Right: No aneurysm, occlusion or significant stenosis. Left: No aneurysm, occlusion or significant stenosis. Posterior Cerebral Arteries: Right: No aneurysm, occlusion or significant stenosis. Left: No aneurysm, occlusion or significant stenosis. Vertebral Arteries: Right: No aneurysm, occlusion or significant stenosis. Left: No aneurysm, occlusion or significant stenosis. Basilar Artery: No aneurysm, occlusion or significant stenosis. IMPRESSION: 1. No large vessel occlusion or significant stenosis on the CT angiography of the head. 2. No acute intracranial process. 3. No occlusion or significant stenosis on the CT angiography of the neck. RADIATION DOSE DELIVERED: 2,042.93mGy.cm Total DLP DATA REPOSITORY: All CT scans at this facility are submitted to the National Radiology Data Registry (NRDR) Dose Index Registry (DIR) with the [employer] ([employer]). RADIATION OPTIMIZATION: All CT scans at this facility use at least one of these dose optimization te chniques: automated exposure control; mA and/or kV adjustment per patient size (includes targeted exa ms where dose is matched to clinical indication); or iterative reconstruction.
[2023-10-25] MEDS: Omnipaque 350 MG/ML 100 ML BTL IJ (18:42)
[2023-10-25] MEDS: Normal Saline - Diluent 50 ML VIAL IJ (18:43)
[2023-10-25] MEDS: Normal Saline Flush 10 ML SYR IVP (18:43)
[2023-10-25 19:11] LABS: Bilirubin Negative (Negative); Blood Negative (Negative); Clarity Clear (Clear); Glucose Negative (Negative); Ketones Negative (Negative); Leukocyte Esterase Negative (Negative); Nitrite Negative (Negative); Specific Gravity <= 1.005 (1.005-1.025); Urobilinogen 0.2 mg/dL (Up to 0.2); pH 5.5 (5-8)
[2023-10-25 19:11] LABS: Creatine Kinase 73 U/L (39-308)
--- NOTE | 2023-10-25 19:13 | DI.VRAD_ITS ---
PROCEDURE INFORMATION: Exam: CTA Head With Contrast, Arteriography Exam date and time: 10/25/2023 6:44 PM Age: 48 years old Clinical indication: Stroke-like symptoms; Other: Dizziness on standing, ttp light touch TECHNIQUE: Imaging protocol: Computed tomographic angiography of the head with contrast. Exam focused on the arteries. 3D rendering (Not supervised by radiologist): MIP and/or 3D reconstructed images were created by the technologist. Radiation optimization: All CT scans at this facility use at least one of these dose optimization techniques: automated exposure control; mA and/or kV adjustment per patient size (includes targeted exams where dose is matched to clinical indication); or iterative reconstruction. Contrast material: OMNIPAQUE 350; Contrast volume: 100 ml; Contrast route: INTRAVENOUS (IV); COMPARISON: No relevant prior studies available. FINDINGS: ANTERIOR CIRCULATION: Right internal carotid artery: Intracranial segment is patent with no significant stenosis. No aneurysm. Right middle cerebral artery: No occlusion or significant stenosis. No aneurysm. Right anterior cerebral artery: No occlusion or significant stenosis. No aneurysm. Left internal carotid artery: Intracranial segment is patent with no significant stenosis. No aneurysm. Left middle cerebral artery: No occlusion or significant stenosis. No aneurysm. Left anterior cerebral artery: No occlusion or significant stenosis. No aneurysm. POSTERIOR CIRCULATION: Right vertebral artery: No occlusion or significant stenosis. No aneurysm. Left vertebral artery: No occlusion or significant stenosis. No aneurysm. Basilar artery: No occlusion or significant stenosis. No aneurysm. Right posterior cerebral artery: No occlusion or significant stenosis. No aneurysm. Left posterior cerebral artery: No occlusion or significant stenosis. No aneurysm. Brain: No definite mass, mass effect, or midline shift. Cerebral ventricles: No ventriculomegaly. Bones/joints: Unremarkable. No acute fracture. Soft tissues: Unremarkable. IMPRESSION: No large vessel stenosis or occlusion. PROCEDURE INFORMATION: Exam: CTA Neck With Contrast Exam date and time: 10/25/2023 6:44 PM Age: 48 years old Clinical indication: Stroke-like symptoms; Other: Dizziness on standing, ttp light touch TECHNIQUE: Imaging protocol: Computed tomographic angiography of the neck with contrast. Exam focused on the cervical segments of the vasculature. 3D rendering (Not supervised by radiologist): MIP and/or 3D reconstructed images were created by the technologist. Radiation optimization: All CT scans at this facility use at least one of these dose optimization techniques: automated exposure control; mA and/or kV adjustment per patient size (includes targeted exams where dose is matched to clinical indication); or iterative reconstruction. Contrast material: OMNIPAQUE 350; Contrast volume: 100 ml; Contrast route: INTRAVENOUS (IV); COMPARISON: CR XR CHEST 2V PA LATERAL 03/28/2022 2:01 PM FINDINGS: Right common carotid artery: No stenosis. No dissection or occlusion. Right internal carotid artery: No stenosis of the extracranial segment. No dissection or occlusion. Right external carotid artery: No occlusion or stenosis of the origin. Left common carotid artery: No stenosis. No dissection or occlusion. Left internal carotid artery: No stenosis of the extracranial segment. No dissection or occlusion. Left external carotid artery: No occlusion or stenosis of the origin. Right vertebral artery: No stenosis. No dissection or occlusion. Left vertebral artery: No stenosis. No dissection or occlusion. Soft tissues: No significant soft tissue swelling. Bones/joints: No acute fracture. IMPRESSION: No stenosis or occlusion. REFERENCES: NASCET CRITERIA. The degree of stenosis in the cervical segment of the internal carotid artery is based on NASCET criteria. Normal is no stenosis. Mild is less than 50% stenosis. Moderate is 50-69% stenosis. Severe is 70% to 99% stenosis. Total occlusion is no detectable patent lumen. Dictated and Authenticated by: Rodney Willson MD. Ordering:FRANK Restrepo MD
[2023-10-27 17:59] LABS: Myeloperoxidase Ab IgG <0.2 U; Proteinase 3 Ab (PR3) <0.2 U
== END 2023-10-25 19:11 | disposition home or self-care (01) ==
PROVIDERS: Emergency Provider Physician Assistant; PCP Physician Assistant Medical
DX: R51.9 Headache, unspecified (principal); R42 Dizziness and giddiness; R20.2 Paresthesia of skin
CPT/HCPCS: 36415; 70496; 70498; 80053; 82550; 85652; 99285; 81003; 83516; 85025; 86140; 99283; J3490; J7512

== ENCOUNTER 2023-10-26 15:53 | Emergency (ER) | payer OTHER, SELFPAY ==
[2023-10-26 15:56] VITALS: BP 175/91; PULSE 100; RESP 20; O2SAT 97
--- NOTE | 2023-10-26 15:58 | ED.GENADUL_ITS ---
HPI General Stated Complaint: RashLesion WOOD: 4 Date/Time Provider Initiated Documentation: 10/26/23 15:58. HPI Narrative: 48 year-old male presents to ED today by POV/ambulating with a chief complaint of continued scalp pain, seen by this provider yesterday with thorough work-up, with onset of worsening redness without lesions, now spreading to R side of scalp. Quality described as tenderness to light touch, headache, now feeling slightly nauseous today while at work here at [employer], no radiation to overt fever, endorses chills, denies vomiting. Severity is described as 6-7/10. Palliating factors include nothing specific- patient was awaiting some send-out labs for possible ANCA vasculitis, vs urgent return for appearance of vesicles. Provoking factors include nothing specific, patient does shave his head frequently. Patient not anticoagulated. Related Data Home Medications Medication Instructions Recorded Confirmed albuterol sulfate 90 mcg/actuation 2 puff inhalation PRN PRN 06/13/13 10/26/23 aerosol inhaler (ProAir HFA) eszopiclone 3 mg tablet (Lunesta) 3 mg PO PRN PRN 06/13/13 10/26/23 ibuprofen 800 mg tablet 800 mg PO PRN 10/26/23 10/26/23 sulfamethoxazole 800 1 tab PO BID cellulitis 10 days 10/26/23 mg-trimethoprim 160 mg tablet #20 tabs Previous Rx's Medication Instructions Recorded sulfamethoxazole 800 1 tab PO BID cellulitis 10 days 10/26/23 mg-trimethoprim 160 mg tablet #20 tabs Allergies Allergy/AdvReac Type Severity Reaction Status Date / Time DUST AND MOLD Allergy WHEEZY Uncoded 10/26/23 15:57 Review of Systems All systems reviewed & are unremarkable except as noted in HPI and below PFSH All Active Problems (Updated 10/26/23 @ 15:58 by SHABNAM Mccann) Cellulitis of scalp (Acute) Scalp tenderness (Acute) Paresthesia (Acute) Encounter for screening for other viral diseases (Acute) Social History Smoking/Tobacco Use Status: Never Smoking risk assessment performed?: Yes Alcohol Intake: current Alcohol Intake frequency: 3 or more drinks per day Alcohol type: beer, wine and hard liquor Drug use: Never Substance use type: does not use Do you feel safe at home: Yes Do you feel safe in your relationship?: Yes Exam Narrative Exam Narrative: GENERAL APPEARANCE: Well-nourished, non-toxic, awake and alert, atraumatic, no acute distress. SKIN: Warm, pink, dry, intact, without rashes/lesions/ulcerations. HEAD: Normocephalic, atraumatic, shaved head, no fluctuant swelling, some developing erythema compared to yesterdays exam, no vesicles, now spreading erythema to R side of posterior scalp, tenderness to light touch diffusely EYES: Pupils PERRLA, EOMs intact without nystagmus, normal conjunctiva, no exudates on lids/lashes. ENT: Nares patent, no circumoral cyanosis, no facial swelling NECK: Supple, trachea midline, painless cervical ROM. LUNGS/CHEST: Non-labored respirations, normal A/P diameter, symmetrical expansion, no chest wall deformity HEART (CV/PV): Regular rate and rhythm without murmur, no peripheral edema, no JVD. ABDOMEN: Soft, non-distended, no guarding. MSK: Normal ROM, no swelling/deformity to bilateral UEs or LEs, moving all extremities without weakness, no cyanosis, spine midline without tenderness, normal curvature. NEURO: Mental Status AAOx4 - alert to person, place, time, events No facial droop, no forehead involvement. Motor: No focal weakness - strength 5/5 in bilateral UEs and LEs, proximal and distal, symmetric. Sensory: sensation intact to light touch globally. Gait normal: patient ambulated without ataxia into ED room. PSYCH: euthymic, cooperative, pleasant, appropriate speech Course Vital Signs Vital signs: Vital Signs Pulse 100 H 10/26/23 15:56 Respiratory Rate 20 10/26/23 15:56 Blood Pressure 175/91 H 10/26/23 15:56 Pulse Oximetry 97 10/26/23 15:56 Pulse 100 H 10/26/23 15:56 Respiratory Rate 20 10/26/23 15:56 Blood Pressure 175/91 H 10/26/23 15:56 Blood Pressure Position Sitting 10/26/23 15:56 Pulse Oximetry 97 10/26/23 15:56 Oxygen Delivery Method Room Air 10/26/23 15:56 Oxygen Flow Rate 0 10/26/23 15:56 Pain Level 5 10/26/23 15:56 Medical Decision Making This dictation utilizes [id number] dictation software and may contain unedited grammatical errors. 48 y/o M presents to ED today with a chief complaint of exquisite tenderness to light-touch to L parietal scalp yesterday, noticed some small <0.2cm purpuritic macular spots in this area too- consulted with [facility]- consider ANCA vasculitis not GCA, patient returns today with actual erythema spreading from L scalp to R scalp now- and chills/nausea. Patients' medical history: negative, otherwise healthy. Family and social history: noncontributory. Pertinent exam findings / vital signs include macular erythematous area to L parietal scalp, no vesicles, denies visual changes. Differential / pathologies of concern include less likely shingles- now having bilateral pain, no new onset of vesicles, developed erthematous macular rash, suspect possible cellulitis. Diagnostic studies of: -none, patient preference for quick visit today, works at [employer], can return. Interventions of: -Bactrim Rx. ED Course/Assessment/Plan: 48-year-old male with atypical scalp pain presented yesterday, is now having more of a red macular area more consistent with cellulitis, had a mild white count yesterday, has pending ANCA vasculitis labs with possible rheumatology follow-up planned for October 29. I did start him on Bactrim today and advised therapeutic dosing Tylenol and ibuprofen, strict return criteria for worsening signs of infection. He does shave his head perhaps this was the port of entry for bacteria for scalp cellulitis. Findings not consistent with acute distress, patient prefers quick visit today asking what wait times would be, wants to try empiric antibiotics. Disposition of cellulitis of scalp. Patient verbalized understanding of the plan and return to ED criteria and engaged in shared decision making. Medical Records Medical records reviewed: Yes I reviewed the patient's medical records. Quality:SDOH Health Related Social Needs: No Data to Display Discharge Plan Disposition Patient Disposition: Home Condition: Stable Discharge Details Clinical Impression: Cellulitis of scalp Primary Care Provider: Marino Welch ED Provider: Lauro Galvan Home Meds and New Rx's Prescriptions: New sulfamethoxazole-trimethoprim 800-160 mg tablet 1 tab PO BID 10 Days Qty: 20 0RF No Action albuterol sulfate [ProAir HFA] 200 PUFF HFA aerosol inhaler 2 puff Inhalation PRN PRN Patient Comments: a week or so ago eszopiclone [Lunesta] 3 MG tablet 3 mg PO PRN PRN ibuprofen 800 mg tablet 800 mg PO PRN Discharge Instructions Instructions: Sulfamethoxazole/Trimethoprim (By mouth), Cellulitis (ED) Additional Instructions: You were seen in the emergency department yesterday as well as today by myself for your scalp tenderness, you have some more erythema today and no vesicular lesions in the area has spread to both sides of your scalp I do not think this is shingles, we sent out an ANCA vasculitis panel yesterday that should be back by the end of the week but at this time I think we should move forward with treating you for an empiric cellulitis possibly some bacteria got into your skin while shaving her head at some point. Please use therapeutic dosing of Tylenol (acetamenophen) & Advil (ibuprofen) in an alternating fashion as follows: Take 1000mg of Tylenol every 6 hours without missing doses- that is 4 times per day. Assisted in between the Tylenol dosings, take 400-600mg of Advil also on a 6 hour schedule, that is also 4 times per day. The daily maximum dosing of Tylenol is 4000mg, and the daily maximum dosing of Advil is 2400mg. This is safe to do for weeks. Please note that some common cold medications & prescription pain medications may contain acetamenophen and you need to read OTC drug labels and factor that in to maximum daily dosings. Please watch for signs of worsening infection like high fevers, nausea, shortness of breath, near passing out. Return for any emergent concerns Referrals: Marino Welch PA [Primary Care Provider] - Discharge Data Discharge Date/Time-TO BE ENTERED AT DEPARTURE: 10/26/23 16:06
== END 2023-10-26 16:06 | disposition home or self-care (01) ==
PROVIDERS: Emergency Provider Physician Assistant; PCP Physician Assistant Medical
DX: L03.811 Cellulitis of head [any part, except face] (principal); R51.9 Headache, unspecified; R11.0 Nausea; I10 Essential (primary) hypertension
CPT/HCPCS: 99283

== ENCOUNTER 2024-12-27 13:11 | Outpatient (REF) | payer OTHER, SELFPAY ==
[2024-12-27 15:41] LABS: Abs Immature Grans 0.03 10^3/uL (0.0-0.06); Absolute Basophil Count 0.08 10^3/uL (0.0-0.2); Absolute Eosinophil Count 0.21 10^3/uL (0.0-0.7); Absolute Monocyte Count 0.89 10^3/uL (0.1-0.8); Basophils % 1.1 %; Eosinophils % 2.8 %; HCT 45.4 % (40.0-50.0); HGB 15.7 g/dL (13.5-17.5); Immature Grans % 0.4 %; Lymphocytes % 38.1 %; MCH 32.6 pg (27.0-33.0); MCHC 34.6 % (32.0-36.0); MCV 94 fL (80-95); MPV 10.8 fL (8.0-11.0); Monocytes % 11.7 %; Neutrophils % 45.9 %; Platelet Count 223 10^3/uL (130-400); RBC 4.82 10^6/uL (4.36-5.78); RDW 12.4 % (11.8-14.1); RDW-SD 43.2 fL; WBC 7.61 10^3/uL (4.4-10.8)
[2024-12-27 15:54] LABS: ALT 127 U/L (16-63); AST 93 U/L (15-37); Albumin 3.9 g/dL (3.4-5.0); Alkaline Phosphatase 67 U/L (46-116); Anion Gap 7.8 mmol/L (3-11); BUN 6 mg/dL (7-18); Bilirubin, Total 0.7 mg/dL (0.2-1.0); CO2 27.2 mmol/L (21.0-32.0); CREATININE 0.9 mg/dL (0.70-1.30); Calcium 9.3 mg/dL (8.5-10.1); Calculated LDL 145 mg/dL (<100); Chloride 106 mmol/L (98-107); Cholesterol 245 mg/dL (<200); Glucose 83 mg/dL (74-106); HDL Cholesterol 70 mg/dL (>or=40); Potassium 4.5 mmol/L (3.5-5.1); Sodium 141 mmol/L (136-145); Total Protein 7.8 g/dL (6.4-8.2); Triglyceride 153 mg/dL (<150)
[2024-12-27 16:58] LABS: Hemoglobin A1C 5.2 % (<5.7)
== END 2024-12-27 13:12 | disposition home or self-care (01) ==
LOC: NCHCN 13:11
PROVIDERS: PCP Physician Assistant Medical; Visit Provider Physician Assistant Medical
DX: R74.01 Elevation of levels of liver transaminase levels (principal); E78.5 Hyperlipidemia, unspecified; E66.9 Obesity, unspecified
CPT/HCPCS: 80053; 80061; 83036; 85025

== ENCOUNTER 2025-02-22 15:48 | Outpatient (REF) | payer OTHER, SELFPAY ==
[2025-02-22 19:36] LABS: Abs Immature Grans 0.01 10^3/uL (0.0-0.06); Absolute Basophil Count 0.05 10^3/uL (0.0-0.2); Absolute Eosinophil Count 0.25 10^3/uL (0.0-0.7); Absolute Lymphocyte Count 1.22 10^3/uL (1.2-3.4); Absolute Monocyte Count 1.33 10^3/uL (0.1-0.8); Absolute Neutrophil Count 2.01 10^3/uL (1.2-6.7); Eosinophils % 5.1 %; HCT 42.2 % (40.0-50.0); Immature Grans % 0.2 %; Lymphocytes % 25.1 %; MCH 32.9 pg (27.0-33.0); MCHC 35.5 % (32.0-36.0); MCV 93 fL (80-95); Monocytes % 27.3 %; Neutrophils % 41.3 %; RBC 4.56 10^6/uL (4.36-5.78); RDW 12.6 % (11.8-14.1); RDW-SD 43.5 fL; WBC 4.87 10^3/uL (4.4-10.8)
[2025-02-22 19:51] LABS: ALT 178 U/L (16-63); AST 284 U/L (15-37); Albumin 3.8 g/dL (3.4-5.0); Alkaline Phosphatase 74 U/L (46-116); Anion Gap 11.4 mmol/L (3-11); BUN 10 mg/dL (7-18); Bilirubin, Total 0.8 mg/dL (0.2-1.0); CO2 23.6 mmol/L (21.0-32.0); CREATININE 0.8 mg/dL (0.70-1.30); Chloride 101 mmol/L (98-107); Estimated GFR 108.49 (mL/min/1.73m2); Glucose 86 mg/dL (74-106); Potassium 4.1 mmol/L (3.5-5.1); Sodium 136 mmol/L (136-145); Total Protein 7.4 g/dL (6.4-8.2)
[2025-02-22 19:52] LABS: Diff Comment PLT Morph Reviewed; RBC Morphology Normal
== END 2025-02-22 15:49 | disposition home or self-care (01) ==
LOC: NCHCN 15:48
PROVIDERS: PCP Physician Assistant Medical; Visit Provider Physician Assistant Medical
DX: F10.10 Alcohol abuse, uncomplicated (principal)
CPT/HCPCS: 80053; 85025